=== PATIENT | female | born 1945 | race Caucasian/White ===

== ENCOUNTER 2023-02-21 22:00 | Emergency (ER) | payer OTHER, MEDICAID ==
[~2023-02-21] VITALS: Ht 147.3 cm; Wt 51.0 kg
[2023-02-21 22:05] VITALS: BP 127/75; RESP 16; TEMP 98.8; O2SAT 99
[2023-02-21 22:07] VITALS: PULSE 85
== END 2023-02-22 01:58 | disposition left against medical advice (07) ==
LOC: ER 22:00
DX: Z53.21 Procedure and treatment not carried out due to patient leaving prior to being seen by health care provider (principal)
CPT/HCPCS: 99281